=== PATIENT | female | born 1940 | race Hispanic/Latino ===

== ENCOUNTER 2018-01-06 12:28 | Day surgery (SDC) | payer MEDICARE ==
[2017-12-31 12:55] VITALS: BMI 26.5
[2018-01-06 12:52] LABS: BASO # 0.05 K/mm3 (0.0-2.0); BASO % 0.4 % (0.0-3.0); EOS # 0.1 (0.0-0.7); EOS % 0.4 % (1.5-5.0); GRAN # 6.96 (1.4-6.5); GRAN % 59.3 % (50.0-68.0); LYMPH # 3.8 (1.2-3.4); LYMPH % 32.3 % (22.0-35.0); MEAN CELL VOLUME 87.2 fl (80.0-105.0); MEAN CORPUSCULAR HEMOGLOBIN 30.1 pg (25.0-35.0); MEAN CORPUSCULAR HGB CONC 34.6 g/dl (31.0-37.0); MEAN PLATELET VOLUME 9.5 fl (7.0-11.0); MONO # 0.9 (0.1-0.6); MONO % 7.6 % (1.0-6.0); RBC 5.31 10^6/uL (3.5-6.1); RED CELL DISTRIBUTION WIDTH 13.5 % (11.5-14.5); WHITE BLOOD COUNT 11.7 10^3/ul (4.5-11.0)
[2018-01-06 13:00] LABS: BLOOD UREA NITROGEN 13 mg/dL (7-21); CALCIUM 10.5 mg/dL (8.4-10.5); GFR AFRICAN-AMERICAN > 60; GFR NON-AFRICAN AMERICAN > 60
[2018-01-06 13:20] LABS: INR 0.98 (0.93-1.08); PARTIAL THROMBOPLASTIN TIME 28.8 Seconds (25.1-36.5); PROTHROMBIN TIME 11.2 SECONDS (9.4-12.5)
[2018-01-06] MEDS ORDERED: Midazolam 2 MG/2 ML VIAL ONE ×2 (14:32→17:44)
[2018-01-06] MEDS ORDERED: Lidocaine 1% Inj (20ml) ONE ×2 (14:33→17:44)
[2018-01-06] MEDS ORDERED: Sodium Chloride 0.45% 1,000 ML IV SCH (15:30)
[2018-01-06] MEDS ORDERED: Oxycodone/Acetaminophen 5/325 mg Tab ONE (15:39)
[2018-01-06] MEDS: Oxycodone/Acetaminophen 5/325 mg Tab PO PRN ×2 (15:40→21:10)
--- NOTE | 2018-01-06 17:15 | CT ---
PROCEDURE: CT guided left upper lobe lung biopsy. HISTORY: Smoker. 17 mm noncalcified spiculated left upper lobe lung nodule. Evaluate for malignancy. PHYSICIAN(S): Matthew Carreon MD. TECHNIQUE: The relative risks and indications of the procedure were explained to the patient and consent obtained. The patient was placed right decubitus position on the CT scanner and preliminary images through the upper lungs obtained. Conscious sedation and monitoring were provided throughout the procedure by a nurse. There is a 17 mm irregular noncalcified nodule left upper lobe posteriorly.. A bladder approach was selected and the area prepped and draped in the usual sterile fashion. 1% Xylocaine was used to anesthetize the skin and soft tissues. A 19 gauge guiding needle was advanced into the 18 mm left upper lobe non. Its position was confirmed with CT. Using coaxial technique, multiple core biopsies were obtained. The postprocedure images show no evidence of large pneumothorax or significant hemorrhage.. IMPRESSION: 1. CT-guided left upper lobe lung biopsy as described above.
[2018-01-06] MEDS ORDERED: Oxycodone/Acetaminophen 5/325 mg Tab PO PRN (18:54)
--- NOTE | 2018-01-06 19:26 | CT ---
PROCEDURE: CT-guided left chest tube placement HISTORY: 2 cm left upper lobe lung mass. Enlarging pneumothorax with shortness of breath post biopsy. Needs chest tube. PHYSICIAN(S): Matthew Carreon MD. TECHNIQUE: The relative risks and indications for the procedure were explained to the patient and her family and informed consent obtained. The patient was placed in a supine position on the CT scanner and preliminary images through the lung apices performed. This revealed a moderate sized left anterior pneumothorax. In anterior approach was selected the area prepped and draped usual sterile fashion. Conscious sedation and monitoring were provided throughout the procedure by a nurse. A left anterior approach was selected the area anesthetized with 1 percent xylocaine. A 19 gauge needle was advanced into the left pleural space and air aspirated. 0.035 guidewire was coiled in the left pleural space. Sequential dilatation was performed with subsequent placement of 10 [place] pigtail chest tube anteriorly. The catheter was retracted is anterior chest wall. The catheter was placed on 20 cm low continuous suction. Postprocedure images demonstrated resolution of the pneumothorax. IMPRESSION: 1. CT-guided left chest tube placement as described above.
[2018-01-07] MEDS: Oxycodone/Acetaminophen 5/325 mg Tab PO PRN (02:51)
[2018-01-07 08:37] VITALS: BP 138/62; PULSE 74; RESP 18; TEMP 98.6; O2SAT 98
--- NOTE | 2018-01-07 10:45 | RAD ---
HISTORY: lt lung bx COMPARISON: No prior. FINDINGS: LUNGS: There is a left upper lobe pneumothorax. The edge of the lung is 3 cm from the chest wall. A followup film shows placement of a chest tube PLEURA: As above CARDIOVASCULAR: Normal. OSSEOUS STRUCTURES: No significant abnormalities. VISUALIZED UPPER ABDOMEN: Normal. OTHER FINDINGS: None. IMPRESSION: Left apical pneumothorax.
--- NOTE | 2018-01-07 10:50 | RAD ---
HISTORY: lt chest tube COMPARISON: 01/06/2018 FINDINGS: LUNGS: There is a new left-sided chest tube. There is re-expansion of the lung. PLEURA: No significant pleural effusion identified, no pneumothorax apparent. CARDIOVASCULAR: Normal. OSSEOUS STRUCTURES: No significant abnormalities. VISUALIZED UPPER ABDOMEN: Normal. OTHER FINDINGS: None. IMPRESSION: There is a new left-sided chest tube. There is re-expansion of the lung.
--- NOTE | 2018-01-07 14:26 | RAD ---
HISTORY: lt chest tube COMPARISON: Earlier same day FINDINGS: LUNGS: There is a pigtail chest tube on the left. There is no visible pneumothorax. PLEURA: No significant pleural effusion identified, no pneumothorax apparent. CARDIOVASCULAR: Normal. OSSEOUS STRUCTURES: No significant abnormalities. VISUALIZED UPPER ABDOMEN: Normal. OTHER FINDINGS: None. IMPRESSION: No evidence of pneumothorax. Chest tube in place
== END 2018-01-07 15:10 | disposition home or self-care (01) ==
LOC: SDS 12:28 → 5RSO 20:05 → SDS 01-07 15:10
PROVIDERS: ATTEND Radiology Vascular & Interventional Radiology
DX: C7A.1 Malignant poorly differentiated neuroendocrine tumors (principal); J95.811 Postprocedural pneumothorax; F17.200 Nicotine dependence, unspecified, uncomplicated
CPT/HCPCS: 32405; 32555; 36415; 71045 ×2; 77012; 80048; 85025; 85610; 85730; 88305; J2250; J2405; J3010; J7030 ×2